=== PATIENT | male | born 1965 | race African-American/Black ===

== ENCOUNTER → 2017-08-03 | Outpatient (CLI) | payer OTHER ==
[2017-08-03] MEDS: GADOBUTROL 10 MMOL/10 ML VIAL IV ×2 (10:00)
== END | disposition home or self-care (01) ==
LOC: MRI 08:20
DX: G93.89 Other specified disorders of brain (principal); I10 Essential (primary) hypertension; Z86.73 Personal history of transient ischemic attack (TIA), and cerebral infarction without residual deficits; Z86.69 Personal history of other diseases of the nervous system and sense organs
CPT/HCPCS: 70553; 72156; A9585

== ENCOUNTER → 2017-08-08 | Outpatient (CLI) | payer OTHER, BC | END | disposition home or self-care (01) | LOC: RT 08:46 | DX: R56.9 Unspecified convulsions (principal); R51 Headache | CPT/HCPCS: 95816 ==

== ENCOUNTER → 2018-09-18 | Outpatient (CLI) | payer MEDICARE, OTHER ==
[2015-12-20 14:37] VITALS: BP 131/84
[~2018-09-18] MED LIST: CYCL10TA2 PO; HYDR-3164 PO; METH4TAB2 PO; ONDA4TAB10 SL
--- NOTE | 2018-09-18 11:19 | RAD ---
MRI Cervical Spine Without Contrast History: Worsening neck pain with left arm radiculopathy Technique: Multiplanar, multi sequential noncontrast MR imaging was performed of the cervical spine. Comparison: 08/03/2017 Findings: There is motion degradation. Cervical cord caliber is within normal limits, no new defined or expansile signal abnormality, somewhat limited evaluation for subtle signal change due to artifact. Cervical vertebral body stature and AP alignment are maintained. There is straightening of the cervical spine. Intervertebral disc spaces are overall preserved. C2-C3: Neural foramina and spinal canal are adequate. C3-C4: Spinal canal and neural foramina are adequate. C4-C5: Spinal canal is adequate. There is right uncovertebral degenerative change, likely mild narrowing of the right neural foramen. Left neural foramen is adequate. C5-C6: Neural foramina and spinal canal are adequate. There is again minimal right uncovertebral degenerative change. C6-C7: There is again very shallow protrusion in the far right lateral recess. Spinal canal is overall adequate. Neural foramina are not significantly narrowed. C7-T1: Neural foramina and spinal canal are adequate. Impression: 1. There is no new significant cervical spinal stenosis or neural foramina compromise. Electronically signed by: Pop Ac MD (09/18/2018 11:17 AM) [id number]
== END | disposition home or self-care (01) ==
LOC: MRI 10:25
PROVIDERS: ATTEND Psychiatry & Neurology Neurology
DX: M47.22 Other spondylosis with radiculopathy, cervical region (principal); M50.123 Cervical disc disorder at C6-C7 level with radiculopathy
CPT/HCPCS: 72141

== ENCOUNTER 2021-01-01 12:27 | Emergency (ER) | payer OTHER, MEDICARE ==
[~2021-01-01] VITALS: Ht 185.4 cm; Wt 93.1 kg
[2021-01-01 12:30] VITALS: BP 118/76
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
[2021-01-01] MEDS ORDERED: HYDROcodone/APAP 5/325MG 1 TAB TABLET PO ONE (13:15)
[2021-01-01] MEDS ORDERED: ORPHENADRINE CITRATE 60 MG/2 ML VIAL. IM ONE (13:15)
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
[2021-01-01] MEDS ORDERED: HYDR-2759 PO (14:40)
[2021-01-01] MEDS ORDERED: ORPH100T PO (14:40)
== END 2021-01-01 14:46 | disposition home or self-care (01) ==
LOC: ER 12:27
DX: S16.1XXA Strain of muscle, fascia and tendon at neck level, initial encounter (principal); S76.012A Strain of muscle, fascia and tendon of left hip, initial encounter; S46.912A Strain of unspecified muscle, fascia and tendon at shoulder and upper arm level, left arm, initial encounter; M54.5 Low back pain; R51.9 Headache, unspecified; M54.6 Pain in thoracic spine; E78.00 Pure hypercholesterolemia, unspecified; I10 Essential (primary) hypertension; Z86.73 Personal history of transient ischemic attack (TIA), and cerebral infarction without residual deficits; F17.200 Nicotine dependence, unspecified, uncomplicated; V49.59XA Passenger injured in collision with other motor vehicles in traffic accident, initial encounter; Y92.488 Other paved roadways as the place of occurrence of the external cause; Y93.89 Activity, other specified; Y99.8 Other external cause status
CPT/HCPCS: 70450; 72125; 72128; 72131; 73030; 73502; 96372; 99285; J2360